=== PATIENT | female | born 1970 | race Asian ===

== ENCOUNTER 2019-07-23 14:21 | Inpatient (IN) | payer OTHER ==
[2019-07-23] MEDS: ONDANSETRON 4 MG INJ IV (16:12)
[2019-07-23] MEDS: morphine 2 MG INJ IV (16:12)
[2019-07-23] MEDS ORDERED: KETOROLAC 30 MG INJ IV (17:43)
[2019-07-23] MEDS ORDERED: MAGNESIUM HYDROXIDE 30ML CUP PO (21:00)
[2019-07-23] MEDS ORDERED: NACL 0.9% 3 ML SYG IV (21:00)
[2019-07-23] MEDS ORDERED: HYDROCODONE/APAP (5/325) TAB PO (21:00)
[2019-07-23] MEDS ORDERED: BISACODYL (EC) 5 MG TAB PO (21:00)
[2019-07-23] MEDS ORDERED: ONDANSETRON 4 MG INJ IV (21:00)
[2019-07-23] MEDS ORDERED: DOCUSATE SODIUM 100 MG CAP PO (21:00)
[2019-07-23] MEDS ORDERED: morphine 2 MG INJ IV (21:00)
[2019-07-23] MEDS ORDERED: BISACODYL 10 MG SUPP PR (21:00)
[2019-07-23] MEDS: FAMOTIDINE 20 MG INJ IV (23:41)
[2019-07-23] MEDS: DEXTROSE 5%-0.9% NACL 1,000 ML IV (23:41)
[2019-07-24] MEDS: DEXTROSE 5%-0.9% NACL 1,000 ML IV ×4 (07:00→18:47)
[2019-07-24] MEDS: FAMOTIDINE 20 MG INJ IV ×2 (09:05→20:44)
[2019-07-24] MEDS: ACETAMINOPHEN 325 MG TAB PO (12:47)
[2019-07-24] MEDS: POTASSIUM CHLORIDE (SR) 20 MEQ TAB PO (13:54)
[2019-07-25] MEDS: DEXTROSE 5%-0.9% NACL 1,000 ML IV ×4 (03:00→21:58)
[2019-07-25] MEDS: FAMOTIDINE 20 MG INJ IV ×2 (08:11→21:57)
[2019-07-25] MEDS ORDERED: HYDROmorphONE 1 MG/5 ML IV SYRINGE IV ×3 (18:00)
[2019-07-25] MEDS ORDERED: EPHEDrine 25 MG/5 ML SYG IV (18:00)
[2019-07-25] MEDS ORDERED: PROCHLORPERAZINE 10 MG INJ IV (18:00)
[2019-07-25] MEDS ORDERED: hydrALAzine 20 MG INJ IV (18:00)
[2019-07-25] MEDS ORDERED: DIPHENHYDRAMINE 50 MG INJ IV (18:00)
[2019-07-25] MEDS ORDERED: ONDANSETRON 4 MG INJ IV (18:00)
[2019-07-25] MEDS ORDERED: MEPERIDINE 25 MG INJ IV (18:00)
[2019-07-25] MEDS ORDERED: FENTAnyl 50 MCG/ML VIAL IV (18:00)
[2019-07-25] MEDS ORDERED: LABETALOL HCL 20MG INJ IV (18:00)
[2019-07-25] MEDS ORDERED: IOHEXOL 300MG/ML 30 ML BTL (18:17)
[2019-07-25] MEDS ORDERED: SEVOFLURANE 15 MIN (18:30)
[2019-07-25] MEDS ORDERED: CEFAZOLIN 1 GM INJ (18:30)
[2019-07-25] MEDS ORDERED: MIDAZOLAM 1 MG/ML 2 ML INJ (18:37)
[2019-07-25] MEDS ORDERED: LIDOCAINE 2% (SDV) 5 ML INJ (18:48)
[2019-07-25] MEDS ORDERED: PROPOFOL 20 ML (18:48)
[2019-07-25] MEDS ORDERED: ONDANSETRON 4 MG INJ (19:05)
[2019-07-25] MEDS ORDERED: DEXAMETHASONE 4 MG/ML 5 ML INJ (19:05)
[2019-07-25] MEDS ORDERED: EPHEDrine 25 MG/5 ML SYG (19:08)
[2019-07-26] MEDS: FAMOTIDINE 20 MG INJ IV (08:10)
[2019-07-26] MEDS: DEXTROSE 5%-0.9% NACL 1,000 ML IV (08:11)
== END 2019-07-26 14:20 | disposition home or self-care (01) | DRG 661 ==
LOC: E/R 14:21 → MS3 07-24 16:20
PROC: 0TC68ZZ Extirpation of Matter from Right Ureter, Via Natural or Artificial Opening Endoscopic (ICD-10-PCS; principal; 2019-07-25 17:30)
PROC: 0T768DZ Dilation of Right Ureter with Intraluminal Device, Via Natural or Artificial Opening Endoscopic (ICD-10-PCS; 2019-07-25 17:30)
DX: N13.2 Hydronephrosis with renal and ureteral calculous obstruction (principal); K76.0 Fatty (change of) liver, not elsewhere classified; I10 Essential (primary) hypertension
CPT/HCPCS: 36415; 71045; 74018; 74176; 74430; 76705; 76830; 76856; 80053; 81003; 81025; 83690; 83735; 84100; 85025; 85610; 85730; 87086; 88300; 96374; 96375; 99285-25